=== PATIENT | female | born 1995 | race Caucasian/White ===

== ENCOUNTER 2017-03-17 10:59 | Emergency (ER) | payer OTHER ==
[~2017-03-17] VITALS: Wt 89.0 kg
--- NOTE | 2017-03-17 12:35 | ERD ---
ER Documentation Chief Complaint Date/Time DATE: 03/17/17 TIME: 12:34 Chief Complaint LOWER ABD PAIN X 3 DAYS HPI 21-year-old female comes in with lower abdominal pain that is diffuse and cramping intermittent for the past 3 days. She states that it was worse after going into work and walking. She has had associated diarrhea 3-4 episodes each day that are nonbloody. She has not had any fevers, chills, vomiting. She denies vaginal bleeding. She states her last menstrual period was approximately February 14, 2017. ROS All systems reviewed and are negative except as per history of present illness. Medications Home Meds Active Scripts Dicyclomine Hcl* (Bentyl*) 10 Mg Capsule, 10 MG PO QID, #20 CAP Prov:VANESSA CALABRESE PA-C 03/17/17 PMhx/Soc Medical and Surgical Hx: pt denies Medical Hx, pt denies Surgical Hx Hx Alcohol Use: No Hx Substance Use: No Hx Tobacco Use: No Physical Exam Vitals Vital Signs Date Time Temp Pulse Resp B/P Pulse Ox O2 Delivery O2 Flow Rate FiO2 03/17/17 11:04 98.9 62 18 118/57 99 Physical Exam General: Well-developed, well-nourished. The patient appears in no acute distress. HEENT: Head is normocephalic, atraumatic. No scleral icterus. Neck: Supple. Nontender. Lungs: Clear to auscultation. Normal air movement. Heart: Regular rate and rhythm. S1 and S2 are normal. No murmurs, gallops, or rubs. Abdomen: Soft, tender in the suprapubic region nondistended. Bowel sounds are normoactive. Extremities: No clubbing or cyanosis. Normal pulses. Moving extremities x 4. No weakness. Neurologic: Alert and oriented 3. No focal deficits. Skin: Normal turgor. No rash or lesions. Result Diagram: 03/17/17 1245 03/17/17 1245 Results 24 hrs Laboratory Tests Test 03/17/17 12:40 03/17/17 12:45 Urine Color LT. YELLOW Urine Clarity CLEAR Urine pH 6.5 Urine Specific [place] 1.020 Urine Ketones NEGATIVE Urine Nitrite NEGATIVE Urine Bilirubin NEGATIVE Urine Urobilinogen 0.2 E.U./dL Urine Leukocyte Esterase TRACE Urine Microscopic RBC NONE SEEN/HPF Urine Microscopic WBC 0-2/HPF Urine Squamous Epithelial Cells FEW Urine Hemoglobin NEGATIVE Urine Glucose NEGATIVE% Urine Total Protein NEGATIVE White Blood Count 14.010^3/ul Red Blood Count 5.5310^6/ul Hemoglobin 10.9g/dl Hematocrit 37.9% Mean Corpuscular Volume 68.5fl Mean Corpuscular Hemoglobin 19.7pg Mean Corpuscular Hemoglobin Concent 28.8g/dl Red Cell Distribution Width 21.2% Platelet Count 86749^3/UL Mean Platelet Volume 9.7fl Neutrophils % 72.7% Lymphocytes % 17.1% Monocytes % 6.8% Eosinophils % 2.3% Basophils % 0.5% Nucleated Red Blood Cells % 0.0/100WBC Neutrophils # 10.210^3/ul Lymphocytes # 2.410^3/ul Monocytes # 1.010^3/ul Eosinophils # 0.310^3/ul Basophils # 0.110^3/ul Nucleated Red Blood Cells # 0.010^3/ul Sodium Level 140mmol/L Potassium Level 3.6mmol/L Chloride Level 105mmol/L Carbon Dioxide Level 27mmol/L Anion Gap 12 Blood Urea Nitrogen 16mg/dl Creatinine 0.69mg/dl Glucose Level 88mg/dl Calcium Level 9.2mg/dl Total Bilirubin 0.1mg/dl Direct Bilirubin 0.00mg/dl Indirect Bilirubin 0.1mg/dl Aspartate Amino Transf (AST/SGOT) 22IU/L Alanine Aminotransferase (ALT/SGPT) 44IU/L Alkaline Phosphatase 112IU/L Total Protein 8.4g/dl Albumin 4.4g/dl Globulin 4.00g/dl Albumin/Globulin Ratio 1.10 Lipase 93U/L Current Medications Medications (Trade) Dose Ordered Sig/Katy Route PRN Reason Start Time Stop Time Status Last Admin Dose Admin Dicyclomine HCl (Bentyl) 10 mg ONCE ONCE PO 03/17/17 13:00 03/17/17 13:01 DC 03/17/17 12:36 Procedures/MDM ED course: She had labs and urine obtained. She was given Bentyl for pain. MDM: 21-year-old female has a lower abdominal pain, her abdomen is soft at this time, there are no signs of acute or surgical abdominal process, including perforation or intra-abdominal abscess, appendicitis. She has lower abdominal cramping pain, suprapubic tenderness, will be treated for diarrhea. Departure Diagnosis: Primary Impression: Abdominal pain Additional Impression: Diarrhea Condition: Good VANESSA CALABRESE PA-C March 17, 2017 12:35
[2017-03-17 12:56] LABS: ADD SCAN DIFF NO
[2017-03-17 12:58] LABS: ABNORMAL IP MESSAGE 1; BASOPHIL # 0.1 10^3/ul (0.0-0.1); BASOPHILS % 0.5 % (0.0-2.0); EOSINOPHILS # 0.3 10^3/ul (0.0-0.5); EOSINOPHILS % 2.3 % (0.0-7.0); HEMATOCRIT 37.9 % (37.0-47.0); HEMOGLOBIN 10.9 g/dl (12.0-16.0); LYMPHOCYTES # 2.4 10^3/ul (0.8-2.9); LYMPHOCYTES % 17.1 % (15.0-51.0); MEAN CORPUSCULAR HEMOGLOBIN 19.7 pg (29.0-33.0); MEAN CORPUSCULAR HGB CONC 28.8 g/dl (32.0-37.0); MEAN CORPUSCULAR VOLUME 68.5 fl (82.0-101.0); MEAN PLATELET VOLUME 9.7 fl (7.4-10.4); MONOCYTES % 6.8 % (0.0-11.0); NEUTROPHIL # 10.2 10^3/ul (1.6-7.5); NEUTROPHILS % 72.7 % (39.0-77.0); PLATELET COUNT 429 10^3/UL (140-415); RED BLOOD COUNT 5.53 10^6/ul (4.20-5.40); RED CELL DISTRIBUTION WIDTH 21.2 % (11.5-14.5)
[2017-03-17] MEDS ORDERED: DICYCLOMINE 10 MG CAP PO ONE (13:00)
[2017-03-17 13:06] LABS: ADD UMIC YES; URINE BILIRUBIN (Dip) NEGATIVE (NEGATIVE); URINE BLOOD (Dip) NEGATIVE (NEGATIVE); URINE COLOR LT. YELLOW (YELLOW); URINE GLUCOSE (Dip) NEGATIVE (NEGATIVE); URINE KETONES (Dip) NEGATIVE (NEGATIVE); URINE LEUKOCYTE ESTERASE (Dip) TRACE (NEGATIVE); URINE NITRITE (Dip) NEGATIVE (NEGATIVE); URINE TOTAL PROTEIN (Dip) NEGATIVE (NEGATIVE); URINE UROBILINOGEN (Dip) 0.2 E.U./dL (0.1-1.0)
[2017-03-17 13:15] LABS: ALBUMIN 4.4 g/dl (3.3-4.9); ALBUMIN/GLOBULIN RATIO 1.1; BILIRUBIN,INDIRECT 0.1 mg/dl (0-1.1); BILIRUBIN,TOTAL 0.1 mg/dl (0.2-1.3); CALCIUM 9.2 mg/dl (8.4-10.2); CREATININE 0.69 mg/dl (0.44-1.00); POTASSIUM 3.6 mmol/L (3.5-5.1); TOTAL PROTEIN 8.4 g/dl (6.1-8.1)
[2017-03-17 13:21] LABS: SQUAMOUS EPITHELIAL CELL,UR FEW; URINE RBCS NONE SEEN /HPF (0)
[2017-03-17] MEDS ORDERED: DICY10CA60 PO (13:37)
[2017-03-17] MEDS ORDERED: METR500T PO (13:50)
[2017-03-17] MEDS ORDERED: CIPR500T4 PO (13:50)
[2017-03-17 14:20] VITALS: BP 112/68; PULSE 64; RESP 18; TEMP 97.3
== END 2017-03-17 14:20 | disposition home or self-care (01) ==
LOC: FTE 10:59
DX: R10.84 Generalized abdominal pain (principal); R19.7 Diarrhea, unspecified
CPT/HCPCS: 36415; 80053; 81001; 83690; 85025; Z7502; Z7610; 81003; 99284

== ENCOUNTER 2017-03-27 19:35 | Emergency (ER) | payer SELFPAY ==
[~2017-03-27 19:35] MED LIST: CIPR500T4 PO; DICY10CA60 PO; METR500T PO
== END 2017-03-27 19:45 | disposition left against medical advice (07) ==
LOC: E/R 19:35
DX: Z53.21 Procedure and treatment not carried out due to patient leaving prior to being seen by health care provider (principal)

== ENCOUNTER 2017-06-03 14:29 | Emergency (ER) | payer OTHER ==
[~2017-06-03] VITALS: Ht 160 cm; Wt 93.0 kg
[2017-06-03 14:33] VITALS: Ht 160 cm; Wt 93.0 kg
[2017-06-03] MEDS ORDERED: ACETAMINOPHEN 500 MG TAB PO STA (15:32)
[2017-06-03 15:43] LABS: URINE BLOOD (Dip) POC Trace-lysed (NEGATIVE)
--- NOTE | 2017-06-03 15:51 | ERD ---
ER Documentation Chief Complaint Date/Time DATE: 06/03/17 TIME: 15:49 Chief Complaint 5/10 r. ankle pain x 1 hour HPI This 21-year-old female presents emergency department today complaining of right ankle pain for the past hour. 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 States that she caught her fall. Denies any previous trauma. States that she also has missed her period for the last 3 months and has had negative test at her clinic and wants a blood test and ultrasound here in the emergency department. States that she has some back pain for "a while". States he does not take any medication for the pain. States last time she had back pain she was . Denies any vaginal bleeding, abdominal pain. Denies any dysuria. ROS All systems reviewed and are negative except as per history of present illness. Medications Home Meds Active Scripts Ibuprofen* (Motrin*) 600 Mg Tab, 600 MG PO Q6, #30 TAB Prov:JYOTSNA REVELES PA-C 06/03/17 Acetaminophen* (Tylophen*) 500 Mg Capsule, 1 CAP PO Q6H Y for PAIN AND OR ELEVATED TEMP, #30 CAP Prov:JYOTSNA REVELES PA-C 06/03/17 Metronidazole* (Flagyl*) 500 Mg Tablet, 500 MG PO TID for 7 Days, TAB Prov:VANESSA CALABRESE PA-C 03/17/17 Ciprofloxacin Hcl* (Ciprofloxacin Hcl*) 500 Mg Tablet, 500 MG PO BID for 7 Days , TAB Prov:VANESSA CALABRESE PA-C 03/17/17 Dicyclomine Hcl* (Bentyl*) 10 Mg Capsule, 10 MG PO QID, #20 CAP Prov:VANESSA CALABRESE PA-C 03/17/17 PMhx/Soc Medical and Surgical Hx: pt denies Medical Hx, pt denies Surgical Hx Hx Alcohol Use: No Hx Substance Use: No Hx Tobacco Use: No Physical Exam Vitals Vital Signs Date Time Temp Pulse Resp B/P Pulse Ox O2 Delivery O2 Flow Rate FiO2 06/03/17 14:33 98.7 94 20 120/76 100 Physical Exam Const: No acute distress Head: Atraumatic Eyes: Normal Conjunctiva ENT: Normal External Ears, Nose and Mouth. Neck: Full range of motion..~ No meningismus. Resp: Clear to auscultation bilaterally Cardio: Regular rate and rhythm, no murmurs Abd: Soft, non tender, non distended. Normal bowel sounds Skin: No petechiae or rashes Back: Nontender midline tenderness. Bilateral paraspinal tenderness. Full active range of motion. Negative straight leg raise. Ext: Right ankle with no obvious deformity. No effusion. No ecchymosis. Full active range of motion. Pulses 2+. Distal neurovascular intact Neur: Awake and alert Psych: Normal Mood and Affect Results 24 hrs Laboratory Tests Test 06/03/17 15:50 Bedside Urine pH (LAB) 6.5 Bedside Urine Protein (LAB) 1+ Bedside Urine Glucose (UA) Negative Bedside Urine Ketones (LAB) Negative Bedside Urine Blood Trace-lysed Bedside Urine Nitrite (LAB) Negative Bedside Urine Leukocyte Esterase (L Negative Current Medications Medications (Trade) Dose Ordered Sig/Katy Route PRN Reason Start Time Stop Time Status Last Admin Dose Admin Acetaminophen (Tylenol Tab) 500 mg ONCE STAT PO 06/03/17 15:32 06/03/17 15:33 DC Procedures/MDM Is a 21-year-old female presents to the emergency department today complaining of right ankle pain after slipping at work. Patient's physical exam is benign however I did offer to obtain images for her. Patient declined. Symptoms at this time is consistent with strain versus sprain versus contusion however cannot rule out acute fracture. I have explained this to the patient. Patient understood. Patient also declined crutches here in the emergency department. Patient back exam was benign. There is been no trauma. Low suspicion for acute fracture dislocation. Symptoms at this time is consistent with strain versus sprain She was also requesting a blood test and ultrasound as she think she is and has not had her period since February. I did obtain a urine test. She is afebrile and otherwise well-appearing. Patient has no abdominal pain and no vaginal bleeding and did not feel that she requires further workup at this time. She may follow-up with her primary care doctor [employer] regarding her irregular menstrual cycles. UA is negative for infection. Urine test is negative Patient symptoms at this time is consistent with right ankle injury, back pain and abnormal menstrual cycle. She was given Tylenol here in the emergency department. I went to explain the results to the patient however it appeared the patient eloped prior to receiving her information and discharge paperwork. Patient eloped in stable condition Departure Diagnosis: Primary Impression: Ankle injury Encounter type: initial encounter Laterality: right Qualified Code: S99.911A - Ankle injury, right, initial encounter Additional Impression: Encounter for laboratory test Condition: JYOTNSA Hurtado PA-C Jun 03, 2017 15:51
[2017-06-03] MEDS ORDERED: ACET500C5 PO (16:41)
[2017-06-03] MEDS ORDERED: IBUP-1542 PO (16:41)
== END 2017-06-03 17:14 | disposition left against medical advice (07) ==
LOC: FTE 14:29
DX: S99.911A Unspecified injury of right ankle, initial encounter (principal); W01.0XXA Fall on same level from slipping, tripping and stumbling without subsequent striking against object, initial encounter; Y92.89 Other specified places as the place of occurrence of the external cause
CPT/HCPCS: 81003; Z7502; Z7610; 99283

== ENCOUNTER 2019-01-28 08:32 | Outpatient (CLI) | payer OTHER ==
[~2019-01-28] VITALS: Ht 160 cm; Wt 101.1 kg
[~2019-01-28 08:32] MED LIST changes: +ACET500C5 PO; +DICY10CA40 PO; -DICY10CA60 PO; +IBUP-1542 PO
[2019-01-28 08:45] VITALS: BP 121/59; PULSE 110; RESP 16; Ht 160 cm; Wt 101.1 kg
[2019-01-28] MEDS ORDERED: ONDANSETRON 4 MG INJ IV STA (08:51)
[2019-01-28] MEDS: LACTATED RINGER'S 1,000 ML IV SCH ×2 (09:17→11:30)
[2019-01-28] MEDS ORDERED: ACETAMINOPHEN 325 MG TAB PO ONE (14:00)
--- NOTE | 2019-01-28 14:53 | TRIAGE ---
OB Triage Datetime Report Generated by CPN: 01/28/2019 14:52 Datetime: 01/28/2019 14:22 Heart Rate FHR Baseline Rate: 145 Monitor Mode: External US Variability: Moderate 6-25 bpm Accelerations: 15X15 Decelerations: None Category: Category I Datetime: 01/28/2019 14:01 Labor Evaluation Frequency: irreg Monitor Mode: External Duration (sec)2399: 50-60 Quality: Mild Pattern: Normal: <= 5 Contractions in 10 Minutes Resting Tone [place]: Relaxed Heart Rate FHR Baseline Rate: 145 Monitor Mode: External US Variability: Moderate 6-25 bpm Accelerations: 15X15 Decelerations: None Category: Category I Pain Presence: None/Denies Pain Type: N/A Datetime: 01/28/2019 12:58 Labor Evaluation Frequency: OCC Monitor Mode: External Duration (sec)2399: 50-60 Quality: Mild Pattern: Normal: <= 5 Contractions in 10 Minutes Resting Tone [place]: Relaxed Heart Rate FHR Baseline Rate: 155 Variability: Moderate 6-25 bpm Accelerations: 15X15 Decelerations: None Category: Category I Datetime: 01/28/2019 11:56 Pattern: Normal: <= 5 Contractions in 10 Minutes Resting Tone [place]: Relaxed Contraction Comments: NO UC Heart Rate FHR Baseline Rate: 145 Monitor Mode: External US Variability: Moderate 6-25 bpm Accelerations: 15X15 Decelerations: None Category: Category I Pain Assessment Pain Scale: 6 Pain Goal: 3 Pain Assessment Comments: lower abdominal pain Datetime: 01/28/2019 11:01 Labor Evaluation Frequency: occ Monitor Mode: External Duration (sec)2399: 30-40 Quality: Mild Pattern: Normal: <= 5 Contractions in 10 Minutes Resting Tone [place]: Relaxed Heart Rate FHR Baseline Rate: 145 Monitor Mode: External US Variability: Moderate 6-25 bpm Accelerations: 15X15 Decelerations: None Category: Category I Pain Assessment Pain Scale: 6 Pain Location: Abdomen Pain Goal: 3 Pain Assessment Comments: lower abdominal pain Datetime: 01/28/2019 10:01 Labor Evaluation Frequency: occ Monitor Mode: External Duration (sec)2399: 50 Quality: Mild Pattern: Normal: <= 5 Contractions in 10 Minutes Resting Tone [place]: Relaxed Heart Rate FHR Baseline Rate: 145 Monitor Mode: External US Variability: Moderate 6-25 bpm Accelerations: 15X15 Decelerations: None Category: Category I Pain Presence: None/Denies Pain Type: N/A Datetime: 01/28/2019 09:36 Vaginal Exam Dilatation (cms): 0.0 Exam By: [facility] Datetime: 01/28/2019 09:00 Pattern: Normal: <= 5 Contractions in 10 Minutes Resting Tone [place]: Relaxed Contraction Comments: no uc Heart Rate FHR Baseline Rate: 155 Monitor Mode: External US Variability: Moderate 6-25 bpm Accelerations: 15X15 Decelerations: None Category: Category I Pain Presence: None/Denies Pain Type: N/A Datetime: 01/28/2019 08:43 Assessment Type: Triage Maternal Assessment Level of Consciousness: Fully Conscious DTR's/Clonus: DTRs 2+; No Clonus Headache: Denies Blurred Vision: No Respiratory Effort: Unlabored; Regular Rhythm; Equal Expansion Breath Sounds, Left: Clear and Equal Breath Sounds, Right: Clear and Equal Nausea/Vomiting: Denies RUQ Epigastric Pain: Denies Lower Extremities Edema: Bilateral Lower Extremities Degree: Pitting Upper Extremities Edema: None Facial Edema: None Fall Risk Assessment History of Falling: (0) No Secondary Diagnosis: (0) No Ambulatory Aid: (0) Bedrest/Nurse Assist IV Therapy: (0) No Gait: (0) Normal/Bedrest/Immobile Mental Status: (0) Oriented to Own Ability Fall Score: 0 Fall Risk Score Definition: No Risk: No action required Datetime: 01/28/2019 08:42 Time of Arrival: 01/28/2019 08:30 EGA: 36.3 Arrived By: Ambulatory Arrived From: Home Chief Complaint: Vomitting x4 times since 0100am today, deny uc, deny vag. bleeding, deny srom, dipika rrehea x2 Movement: Present Contractions: Denies/Absent Rupture of Membranes: Denies Vaginal Bleeding: None Vaginal Discharge: Denies Recent Sexual Intercouse: Denies Abdominal Trauma: Not Applicable Patient Complaints: Other Time Provider Notified: 01/28/2019 08:50 Provider Notified: Initial Plan: iv hydration, ua, cbc, cmp, bpp
--- NOTE | 2019-01-28 19:48 | PN ---
Triage Information Date/Time January 28, 2019 Reason for visit: Weeks of Gestation 36 weeks and 3 days /Para 2 para 1 Diabetes: none Hypertention: none Additional information 23-year-old with IUP at 36 weeks and 3 days presented to complain of nausea vomiting and diarrhea since afternoon. Denies any sick contact. Complaint of suprapubic pain and cramps. Denies any leaking of fluid, vaginal bleeding or decreased movement. Objective Vital Signs Date Temp Pulse Resp B/P (MAP) Pulse Ox O2 O2 Flow FiO2 Time Delivery Rate 01/28/19 98.0 110 16 121/59 08:45 (79) Heart Rate: 130's Contractions: 6-10 Minutes Apart Exam General appearance: Alert and oriented x4 does not appear to be in any acute distress Abdomen: Soft, gravid, suprapubic tenderness noted. No rebound tenderness, no guarding no rigidity no evidence of acute abdomen testing reassuring BPP: 06/03 DENISE: 10.9 VS - Last 72 Hours, by Label Date Temp Pulse Resp B/P (MAP) Pulse Ox O2 O2 Flow FiO2 Time Delivery Rate 01/28/19 98.0 110 16 121/59 08:45 (79) Laboratory Tests Test 01/28/19 09:00 White Blood Count 14.3 H Red Blood Count 4.89 Hemoglobin 11.9 L Hematocrit 37.7 Mean Corpuscular Volume 77.1 L Mean Corpuscular Hemoglobin 24.3 #L Mean Corpuscular Hemoglobin Concent 31.6 L Red Cell Distribution Width 16.4 #H Platelet Count 276 # Mean Platelet Volume 10.9 H Immature Granulocytes % 1.200 H Neutrophils % 90.0 H Lymphocytes % 5.4 L Monocytes % 2.9 Eosinophils % 0.2 Basophils % 0.3 Nucleated Red Blood Cells % 0.0 Immature Granulocytes # 0.170 H Neutrophils # 12.9 H Lymphocytes # 0.8 Monocytes # 0.4 Eosinophils # 0.0 Basophils # 0.0 Nucleated Red Blood Cells # 0.0 Urine Color YELLOW Urine Clarity SLIGHTLY CLOUDY A Urine pH 6.0 Urine Specific [place] 1.020 Urine Ketones 2+ H Urine Nitrite NEGATIVE Urine Bilirubin NEGATIVE Urine Urobilinogen 1+ H Urine Leukocyte Esterase NEGATIVE Urine Microscopic RBC 5 Urine Microscopic WBC 14 H Urine Squamous Epithelial Cells MANY A Urine Bacteria FEW A Urine Mucus FEW A Urine Hemoglobin NEGATIVE Urine Glucose NEGATIVE Urine Total Protein NEGATIVE Sodium Level 137 Potassium Level 3.8 Chloride Level 109 Carbon Dioxide Level 20 L Anion Gap 8 Blood Urea Nitrogen 5 L Creatinine 0.53 Est Glomerular Filtrat Rate mL/min > 60 Glucose Level 108 Calcium Level 9.1 Total Bilirubin 0.7 Direct Bilirubin 0.00 Indirect Bilirubin 0.7 Aspartate Amino Transf (AST/SGOT) 20 Alanine Aminotransferase (ALT/SGPT) 17 Alkaline Phosphatase 291 H Total Protein 7.2 Albumin 3.3 Globulin 3.90 H Albumin/Globulin Ratio 0.84 Results/Medications Result Diagram: 01/28/1989901/28/19 09 Results 24 hrs Laboratory Tests Test 01/28/19 09:00 White Blood Count 14.3 H Red Blood Count 4.89 Hemoglobin 11.9 L Hematocrit 37.7 Mean Corpuscular Volume 77.1 L Mean Corpuscular Hemoglobin 24.3 #L Mean Corpuscular Hemoglobin Concent 31.6 L Red Cell Distribution Width 16.4 #H Platelet Count 276 # Mean Platelet Volume 10.9 H Immature Granulocytes % 1.200 H Neutrophils % 90.0 H Lymphocytes % 5.4 L Monocytes % 2.9 Eosinophils % 0.2 Basophils % 0.3 Nucleated Red Blood Cells % 0.0 Immature Granulocytes # 0.170 H Neutrophils # 12.9 H Lymphocytes # 0.8 Monocytes # 0.4 Eosinophils # 0.0 Basophils # 0.0 Nucleated Red Blood Cells # 0.0 Urine Color YELLOW Urine Clarity SLIGHTLY CLOUDY A Urine pH 6.0 Urine Specific [place] 1.020 Urine Ketones 2+ H Urine Nitrite NEGATIVE Urine Bilirubin NEGATIVE Urine Urobilinogen 1+ H Urine Leukocyte Esterase NEGATIVE Urine Microscopic RBC 5 Urine Microscopic WBC 14 H Urine Squamous Epithelial Cells MANY A Urine Bacteria FEW A Urine Mucus FEW A Urine Hemoglobin NEGATIVE Urine Glucose NEGATIVE Urine Total Protein NEGATIVE Sodium Level 137 Potassium Level 3.8 Chloride Level 109 Carbon Dioxide Level 20 L Anion Gap 8 Blood Urea Nitrogen 5 L Creatinine 0.53 Est Glomerular Filtrat Rate mL/min > 60 Glucose Level 108 Calcium Level 9.1 Total Bilirubin 0.7 Direct Bilirubin 0.00 Indirect Bilirubin 0.7 Aspartate Amino Transf (AST/SGOT) 20 Alanine Aminotransferase (ALT/SGPT) 17 Alkaline Phosphatase 291 H Total Protein 7.2 Albumin 3.3 Globulin 3.90 H Albumin/Globulin Ratio 0.84 Disposition: Discharge Assessment/Plan IUP at 36 weeks and 3 days Cramps and suprapubic tenderness Urine analysis suspicious for UTI Symptoms resolved after hydration Patient also with nausea and vomiting and diarrhea consistent with viral gastroenteritis Patient received antiemetic and could tolerate p.o. Symptoms resolved. No evidence of labor Patient discharged home in stable condition Discussed regarding adequate hydration. Urine was sent for culture and sensitivity. labor precaution kick count follow-up with OB office in 48 hours after discharge the patient from the hospital discussed with the patient Keflex 500 mg p.o. 4 times daily prescribed. Patient will have a follow-up in 3 days with the office for follow-up of the culture. If the culture is negative c an stop antibiotics. NAN WALLS MD Jan 28, 2019 19:48
== END 2019-01-28 14:55 | disposition home or self-care (01) ==
LOC: OBT 08:32 → L-D 08:32 → OBT 14:55
PROVIDERS: ATTEND Obstetrics & Gynecology
DX: O99.613 Diseases of the digestive system complicating pregnancy, third trimester (principal); A08.4 Viral intestinal infection, unspecified; R19.7 Diarrhea, unspecified; O21.2 Late vomiting of pregnancy; Z3A.36 36 weeks gestation of pregnancy
CPT/HCPCS: 36415; 76818; 80053; 81001; 85025; 87086; 96360; 96361; J2405; J7120; Z7500; Z7610; 81003; G0463

== ENCOUNTER 2019-02-16 21:24 | Outpatient (CLI) | payer OTHER ==
[~2019-02-16] VITALS: Ht 160 cm; Wt 104.1 kg
[2019-02-16 21:50] VITALS: BP 118/64; PULSE 93; RESP 17; Ht 160 cm; Wt 104.1 kg
--- NOTE | 2019-02-16 23:07 | TRIAGE ---
OB Triage Datetime Report Generated by CPN: 02/16/2019 23:07 Datetime: 02/16/2019 22:40 Labor Evaluation Frequency: IRREGULAR Monitor Mode: External Duration (sec)2399: 40-30 Quality: Mild Pattern: Normal: <= 5 Contractions in 10 Minutes Resting Tone [place]: Relaxed Heart Rate FHR Baseline Rate: 155 Monitor Mode: External US Variability: Moderate 6-25 bpm Accelerations: 15X15 Decelerations: None Category: Category I Datetime: 02/16/2019 22:14 Time of Arrival: 02/16/2019 21:20 EGA: 39.1 Arrived By: Ambulatory Arrived From: Dr. Bryant Chief Complaint: SGA; PT WAS SENT FROM THE CLINIC FOR EFW, BPP/DENISE, AND NST. Movement: Present Contractions: Irregular Time Contractions Began: 02/16/2019 17:00 Rupture of Membranes: Denies Vaginal Bleeding: Scant Vaginal Discharge: Denies Recent Sexual Intercouse: Denies Abdominal Trauma: Not Applicable Patient Complaints: Contractions Time Provider Notified: 02/16/2019 22:00 Provider Notified: DR. MCCOY Initial Plan: EFM, ULTRASOUND, CALL OB Datetime: 02/16/2019 22:10 Vaginal Exam Dilatation (cms): 1.0 Effacement (%): 50 Station: -2 Exam By: Jose MIDDLETON Membrane Status: Intact Vaginal Bleeding: Scant Cervix, Consistency: Moderate Cervix, Position: Posterior Presentation 'A': Cephalic Datetime: 02/16/2019 22:00 Labor Evaluation Frequency: X2 Monitor Mode: External Duration (sec)2399: 80-90 Quality: Mild Pattern: Normal: <= 5 Contractions in 10 Minutes Resting Tone [place]: Relaxed Heart Rate FHR Baseline Rate: 170 Monitor Mode: External US FHR Baseline Changes: Tachycardia Variability: Moderate 6-25 bpm Accelerations: 15X15 Category: Category II Datetime: 02/16/2019 21:30 Stage of : OB Triage Maternal Assessment Level of Consciousness: Fully Conscious DTR's/Clonus: DTRs 2+; No Clonus Headache: Denies Blurred Vision: No Respiratory Effort: Unlabored; Regular Rhythm; Equal Expansion Breath Sounds, Left: Clear and Equal Breath Sounds, Right: Clear and Equal Nausea/Vomiting: Denies RUQ Epigastric Pain: Denies Lower Extremities Edema: None Degree: None Upper Extremities Edema: None Degree: None Facial Edema: None Temperature Route: Oral Fall Risk Assessment History of Falling: (0) No Secondary Diagnosis: (0) No Ambulatory Aid: (0) Bedrest/Nurse Assist IV Therapy: (0) No Gait: (0) Normal/Bedrest/Immobile Mental Status: (0) Oriented to Own Ability Fall Score: 0 Fall Risk Score Definition: No Risk: No action required Pain Assessment Pain Scale: 3 Pain Presence: Intermittent Pain Type: Contraction Pain Location: Abdomen Datetime: 02/16/2019 21:29 Stage of : OB Triage Datetime: 02/16/2019 21:27 Monitor Mode: External Contraction Comments: APPLIED Monitor Mode: External US Comments: APPLIED Datetime: 01/28/2019 08:43 Fall Score: 0 Fall Risk Score Definition: No Risk: No action required Datetime: 01/28/2019 08:42 EGA: 36.3
--- NOTE | 2019-02-17 22:13 | QN ---
Documentation Comment 23 years old 2 para 1-0-0-1 with single intrauterine at 39 weeks and 1 day with ELAINE of 02/22/2019 with possible small for gestational age referred for NST, biophysical profile EFW. She states good movement. She denies nausea, vomiting, shortness of breath, chest pain, headache, visual changes, vaginal bleeding or LOF. -FHR: No sign of metabolic acidosis- Category I -Contractions: None -SVE: /high/ceph/intact -Ultrasound performed: Normal DENISE, BPP 8 out of 8 -EFW 3325 g, 38% -She has been scheduled for induction of labor at 40 weeks -Symptoms and sign of labor, preeclampsia, kick count discussed with patient, she voiced understanding. All of her questions answered. -Patient was discharged home in stable condition with the appropriate discharge instructions provided. I would like patient to have close follow-up with her primary physician or outpatient clinic in 1-2 days or return to triage for worsening symptoms or any other urgent concerns. VERA MCCOY Feb 17, 2019 22:13
== END 2019-02-16 22:58 | disposition home or self-care (01) ==
LOC: OBT 21:24 → L-D 21:25 → OBT 22:58
PROVIDERS: ATTEND Obstetrics & Gynecology
DX: O36.8330 Maternal care for abnormalities of the fetal heart rate or rhythm, third trimester, not applicable or unspecified (principal); Z3A.39 39 weeks gestation of pregnancy
CPT/HCPCS: 76815; 76818

== ENCOUNTER 2019-02-21 01:24 | Inpatient (IN) | payer OTHER ==
[~2019-02-21] VITALS: Ht 157.5 cm; Wt 103.9 kg
[2019-02-21] MEDS ORDERED: PREN-19 PO (01:40)
[2019-02-21] MEDS ORDERED: FERR134T PO (01:40)
[2019-02-21 01:41] VITALS: BP 116/61; PULSE 80; RESP 18
[2019-02-21] MEDS ORDERED: LACTATED RINGER'S 1,000 ML IV PRN (02:08)
--- NOTE | 2019-02-21 02:16 | TRIAGE ---
OB Triage Datetime Report Generated by CPN: 02/21/2019 02:15 Datetime: 02/21/2019 01:57 Stage of : OB Triage Labor Evaluation Frequency: 3-6 Monitor Mode: External Quality: Moderate Pattern: Normal: <= 5 Contractions in 10 Minutes Resting Tone [place]: Relaxed Heart Rate FHR Baseline Rate: 130 Monitor Mode: External US Variability: Moderate 6-25 bpm Accelerations: 15X15 Vaginal Exam Dilatation (cms): 3.5 Effacement (%): 70 Station: -2 Exam By: Lilo Houser Membrane Status: Intact Vaginal Bleeding: Scant Cervix, Consistency: Soft Cervix, Position: Posterior Presentation 'A': Cephalic Datetime: 02/21/2019 01:46 Time of Arrival: 02/21/2019 01:19 EGA: 39.6 Arrived By: Wheelchair Arrived From: Home Chief Complaint: c/o ucs and DFM Movement: Decreased Contractions: Regular Time Contractions Began: 02/20/2019 22:00 Contractions: q2-6 Rupture of Membranes: Denies Vaginal Bleeding: None Vaginal Discharge: Denies Recent Sexual Intercouse: Denies Abdominal Trauma: Not Applicable Patient Complaints: Contractions Time Provider Notified: 02/21/2019 02:10 Provider Notified: Dr Pat Initial Plan: EFM,SVE Datetime: 02/21/2019 01:32 Stage of : OB Triage Maternal Assessment Level of Consciousness: Fully Conscious Headache: Denies Blurred Vision: No Respiratory Effort: Unlabored Nausea/Vomiting: Denies RUQ Epigastric Pain: Denies Facial Edema: None Monitor Mode: External Resting Tone [place]: Relaxed Monitor Mode: External US Comments: FHR 140 Pain Assessment Pain Scale: 8 Pain Presence: Intermittent Pain Type: Contraction Pain Location: Abdomen Datetime: 02/16/2019 22:14 EGA: 39.1 Datetime: 02/16/2019 21:30 Fall Risk Assessment Fall Score: 0 Fall Risk Score Definition: No Risk: No action required Datetime: 01/28/2019 08:43 Fall Risk Assessment Fall Score: 0 Fall Risk Score Definition: No Risk: No action required Datetime: 01/28/2019 08:42 EGA: 36.3
[2019-02-21] MEDS ORDERED: BUTORPHANOL 2 MG INJ IV PRN ×2 (02:30)
[2019-02-21] MEDS ORDERED: OXYTOCIN 30 UNITS/LR 500 ML IV SCH ×3 (02:30→12:30)
[2019-02-21] MEDS ORDERED: OXYTOCIN 30 UNITS/LR 500 ML IV PRN ×2 (02:30→20:30)
[2019-02-21] MEDS ORDERED: LIDOCAINE 1% (MPF) 30 ML INJ INJ PRN (02:30)
[2019-02-21] MEDS ORDERED: METHYLERGONOVINE 0.2 MG INJ IM PRN ×2 (02:30→20:30)
[2019-02-21] MEDS ORDERED: MISOPROSTOL 200 MCG TAB PR PRN ×2 (02:30→20:30)
[2019-02-21] MEDS ORDERED: IBUPROFEN 600 MG TAB PO PRN ×2 (02:30→16:30)
[2019-02-21] MEDS ORDERED: MINERAL OIL LIGHT 10 ML VIAL TOP ONE (02:30)
[2019-02-21] MEDS ORDERED: CARBOPROST 250 MCG INJ IM PRN ×2 (02:30→20:30)
[2019-02-21] MEDS: LACTATED RINGER'S 1,000 ML IV SCH ×3 (03:11→16:04)
[2019-02-21] MEDS ORDERED: MINERAL OIL LIGHT 10 ML VIAL TOP PRN (03:30)
[2019-02-21] MEDS ORDERED: FENTAnyl 2MCG/ML-ROPIV 0.2% 100 ML ONE (14:22)
[2019-02-21] MEDS ORDERED: NALOXONE (0.4 MG/ML) INJ IV PRN (14:30)
--- NOTE | 2019-02-21 14:30 | PREAC ---
Date/Time of Note Date/Time of Note DATE: 02/21/19 TIME: 14:29 Anesthesia Eval and Record Evaluation Time Pre-Procedure Interview DATE: 02/21/19 TIME: 14:29 Age 23 Sex female NPO: 8 hrs Preoperative diagnosis Labor Pain Planned procedure Labor Epidural Past Medical History Past Medical History: Includes Heme: Anemia : : (2), Para: (1), Gestational age: (40) Surgery & Anesthesia Issues No known issue Meds Anticoagulation: No Beta Denny within 24 hr: No Reason Beta Denny not given: Pt. not on B-Denny Reported Medications Ferrous Sulfate (Iron) 134 Mg Tablet, 134 MG PO DAILY, TAB 02/21/19 Vit #76/Iron,Carb/FA (Prenatabs Rx Tablet) 1 Each Tablet, 1 EACH PO DAILY, TAB 02/21/19 Discontinued Scripts Ibuprofen* (Motrin*) 600 Mg Tab, 600 MG PO Q6, #30 TAB Prov:JYOTSNA REVELES PA-C 06/03/17 Acetaminophen* (Tylophen*) 500 Mg Capsule, 1 CAP PO Q6H PRN for PAIN AND OR ELEVATED TEMP, #30 CAP Prov:JYOTSNA REVELES PA-C 06/03/17 Metronidazole* (Flagyl*) 500 Mg Tablet, 500 MG PO TID for 7 Days, TAB Prov:VANESSA CALABRESE PA-C 03/17/17 Ciprofloxacin Hcl* (Ciprofloxacin Hcl*) 500 Mg Tablet, 500 MG PO BID for 7 Days, TAB Prov:VANESSA CALABRESE PA-C 03/17/17 Dicyclomine HCl (Dicyclomine HCl) 10 Mg Capsule, 10 MG PO QID, #20 CAP Prov:VANESSA CALABRESE PA-C 03/17/17 Current Medications Lactated Ringer's 1,000 ml @ 125 mls/hr Q8H IV Last administered on 02/21/19at 09:11; Admin Dose 125 MLS/HR; Start 02/21/19 at 02:08 Butorphanol Tartrate (Stadol) 1 mg Q2H PRN IV PAIN; Start 02/21/19 at 02:30 Butorphanol Tartrate (Stadol) 2 mg Q2H PRN IV .PAIN; Start 02/21/19 at 02:30 Lidocaine (Xylocaine 1% (Mpf)) 30 ml ONCE PRN INJ .EPISIOTOMY; Start 02/21/19 at 02:30 Oxytocin/Lactated Ringer's 500 ml @ 500 mls/hr ONCE POST IV ; Start 02/21/19 at 02:30 Oxytocin/Lactated Ringer's 500 ml @ 125 mls/hr POST IV ; Start 02/21/19 at 02:30 Ibuprofen (Motrin) 600 mg ONCE PRN PO .PAIN 1-5; Start 02/21/19 at 02:30 Lactated Ringer's 1,000 ml @ 2,000 mls/hr Q30M PRN IV .ANESTHESIA Last administered on 02/21/19at 14:17; Admin Dose 2,000 MLS/HR; Start 02/21/19 at 02:08 Oxytocin/Lactated Ringer's 500 ml @ 0 mls/hr ONCE PRN IV .VAGINAL BLEEDING; Start 02/21/19 at 02:30 Methylergonovine Maleate (Methergine) 0.2 mg ONCE PRN IM .VAGINAL BLEEDING; Start 02/21/19 at 02:30 Carboprost Tromethamine (Hemabate) 250 mcg ONCE PRN IM .VAGINAL BLEEDING; Start 02/21/19 at 02:30 Misoprostol (Cytotec) 1,000 mcg ONCE PRN ID .VAGINAL BLEEDING; Start 02/21/19 at 02:30 Oxytocin/Lactated Ringer's 500 ml @ 0 mls/hr FOR AUGMENTATION IV Last administered on 02/21/19at 12:22; Admin Dose 1 MLS/HR; Start 02/21/19 at 12:30 Meds reviewed: Yes Allergies Coded Allergies: No Known Allergy (Unverified , 02/21/19) Allergies Reviewed: Yes Labs/Studies Labs Reviewed: Reviewed by anesthesiologist Result Diagram: 02/21/19 0245 Laboratory Tests 02/21/19 02:45 Blood Bank Test 02/21/19 02:45 Antibody Screen NEGATIVE Blood Type O POSITIVE Rh Immune Globulin Candidate NO test: Positive Studies: ECG (n/a), CXR (n/a) Pre-procedure Exam Last vitals Vital Signs Date Temp Pulse Resp B/P (MAP) Pulse Ox O2 O2 Flow FiO2 Time Delivery Rate 02/21/19 97.4 80 18 116/61 Room Air 01:41 (79) Airway: Adequate mouth opening, Adequate thyromental dist Mallampati: Mallampati II Teeth: Normal Lung: Normal Heart: Normal ASA Physical Status ASA physical status: 2 Emergency: None Planned Anesthetic Neuraxial: Epidural Planned Pain Management Epidural Pre-operative Attestations Prior to commencing anesthesia and surgery, the patient was re-evaluated, there was verification of: *The patient's identity *The results of appropriate recent lab work and preoperative vital signs *The above evaluation not changing prior to induction *Anesthetic plan, risk benefits, alternative and complications discussed with patient/family; questions answered; patient/family understands, accepts and wishes to proceed. TOBY GUZMAN MD Feb 21, 2019 14:30
--- NOTE | 2019-02-21 14:32 | PAC ---
Date/Time of Note Date/Time of Note DATE: 02/21/19 TIME: 14:31 Post-Anesthesia Notes Post-Anesthesia Note Last documented vital signs Vital Signs Date Temp Pulse Resp B/P (MAP) Pulse Ox O2 O2 Flow FiO2 Time Delivery Rate 02/21/19 97.4 80 18 116/61 96 Room Air 14:31 (79) Activity: WNL Respiratory function: WNL Cardiovascular function: WNL Mental status: Baseline Pain reasonably controlled: Yes Hydration appropriate: Yes Nausea/Vomiting absent: Yes TOBY GUZMAN MD Feb 21, 2019 14:32
[2019-02-21] MEDS: FENTAnyl 2MCG/ML-ROPIV 0.2% 100 ML BAG EPI SCH ×2 (14:50→15:47)
[2019-02-21] MEDS ORDERED: MEPERIDINE 25 MG INJ IV ONE (19:00)
[2019-02-21] MEDS ORDERED: MEPERIDINE 25 MG INJ IM ONE (19:00)
[2019-02-21] MEDS ORDERED: ONDANSETRON 4 MG INJ ONE (19:21)
[2019-02-21] MEDS ORDERED: ONDANSETRON 4 MG INJ IV STA (19:22)
[2019-02-21 19:55] VITALS: BP 97/46; PULSE 85; RESP 18
--- NOTE | 2019-02-21 20:06 | HP ---
Date/Time of Note Date/Time of Note DATE: 02/21/19 TIME: 20:01 OB - History Hx of Present Free Text/Dictation 23 years old 2 para 1 with single intrauterine at 39 weeks and 6 days with ELAINE of 05/24/2019 complaining of uterine contractions. She states good movement. She denies nausea, vomiting, shortness of breath, chest pain, headache, visual changes, vaginal bleeding or LOF. Chief Complaint: Uterine contractions Estimated Due Date: Feb 22, 2019 : 2 Para: 1 Spontaneous : 0 Therapeutic : 0 Care: Good Care Ultrasounds: Normal mid trimester US Obstetrical Complications: None Medical Complications: None Past Family/Social History * Past Medical, Surgical, Family and Obstetric Histories reviewed which are unremarkable Blood Type: O+ Rubella: immune RPR/VDRL: Negative GBS Status: Negative HBsAG: Negative OB Admission Exam Vital Signs Vital Signs Vital Signs Date Temp Pulse Resp B/P (MAP) Pulse Ox O2 O2 Flow FiO2 Time Delivery Rate 02/21/19 97.4 80 18 116/61 Room Air 01:41 (79) Physical Exam HEENT: WNL Heart: Rhythm Normal Lungs: Clear Abdomen: WNL Extremities: Normal Cervical Dilatation: 4cm Effacement: 75% Station: -2 Membranes: Intact Heart Rate: 140's Accelerations: Accelerations Present Decelerations: No Decelerations Varibility: Moderate Contractions on Admission: < 5 Minutes Apart Intensity: Moderate Last 72 hours Lab Results CBC & BMP 02/21/19 02:45 OB Assessment/Plan Other plan: 23 years old 2 para 1-0-0-1 with single intrauterine at 39 weeks and 6 days in active labor - FHR: No sign of metabolic acidosis- Category I - Continuous EFM, toco - CBC, blood type and screen - Analgesia options with R/B/A discussed in detail with patient - Epidural per patient request - Please see the orders - O+/Rubella: Nonimmune, will receive vaccine tomorrow - GBS: Neg Admission, procedures, expectations, risks and possible complications have been discussed in detail with the patient. Risk of vaginal delivery including but not limited to bleeding, infection, cervical laceration, placental retention, injury to fetus, blood transfusion, blood transfusion related infection, risk of anesthesia, adhesion, cervical laceration, episiotomy/laceration, possible cesa rean delivery with risk of bleeding, infection, injury to other organs (bowel, bladder, ureter, vessels, nerves), injury to fetus, blood transfusion, blood transfusion related infection, risk of anesthesia, scar and hernia formation, needs for future , removal of uterus or any other indicated surgery discussed with the patient. She expressed understanding and repeats the risks. All of her questions were answered. She signed the informed consent. PHYSICIAN'S VERIFICATION OF INFORMED CONSENT The patient was counseled regarding the procedure, its indications, risks, potential complications and alternatives and any questions were answered. Consent was obtained. PLANNED PROCEDURE/TREATMENT: Vaginal delivery, episiotomy, repair of laceration possible delivery VERA MCCOY Feb 21, 2019 20:06
[2019-02-21] MEDS ORDERED: LACTATED RINGER'S 1,000 ML IV* SCH (20:10)
[2019-02-21] MEDS ORDERED: DEXTROSE 5%-LR 1,000 ML IV SCH (20:10)
--- NOTE | 2019-02-21 20:11 | LDN ---
Date/Time of Note Date/Time of Note DATE: 02/21/19 TIME: 20:06 Delivery Summary 23 years old 2 para 1-0-0-1 with single intrauterine at 39 weeks and 6 days delivered a viable female over second-degree posterior vaginal wall and perineal laceration. There was a tight nuchal cord which clamp and cut. Rest of body delivered. Baby given to the nurse. Placenta delivered spontaneously and intact with three-vessel cord. Laceration repaired with 2-0 Vicryl. Patient tolerated procedure well Time of delivery 17:39 Weight 6 pounds 12 ounces - 3075 g 9 at 1 minute and 9 at 5 minutes EBL 400 mL, 400 mcg Cytotec p.o. and 400 mcg per rectum given Weeks of Gestation 39 weeks and 6 days Placenta Delivered: Spontaneously Meconium: Light Episiotomy: No Anesthesia type: Epidural Estimated blood loss: 400 Sponge & Needle done & correct: Yes All needle counts correct: Yes (1) Infant Delivery Information Sex Sex: female Apgars 1 Minute: 9 5 Minute: 9 10 Minute: 10 Suctioning Nose & mouth suctioned at mahogany: Yes Umbilical Cord Umbilical cord with: 3 Vessels Cord presentations: nuchal cord Nuchal cord present X: 1 Cord Blood was obtained: Yes Mother & Baby Disposition Disposition Mom & Baby to Maternity; Good: Yes VERA MCCOY Feb 21, 2019 20:10
[2019-02-21] MEDS ORDERED: OXYCODONE/ASPIRIN (4.88/325) TAB PO PRN (20:30)
[2019-02-21] MEDS ORDERED: DIBUCAINE 1% 30 GM OINT TOP PRN (20:30)
[2019-02-21] MEDS ORDERED: LANOLIN HPA 1 PKT TOP PRN (20:30)
[2019-02-21] MEDS ORDERED: WITCH HAZEL/GLYCERIN PAD PR PRN (20:30)
[2019-02-21] MEDS ORDERED: ACETAMINOPHEN 325 MG TAB PO PRN (20:30)
[2019-02-21] MEDS ORDERED: BENZOCAINE 20% 56 ML SPRAY TOP PRN (20:30)
[2019-02-21] MEDS ORDERED: DIPHENHYDRAMINE 50 MG INJ IV PRN (20:30)
[2019-02-21] MEDS ORDERED: MAGNESIUM HYDROXIDE 30ML CUP PO PRN (20:30)
[2019-02-21] MEDS ORDERED: ZOLPIDEM 5 MG TAB PO PRN (20:30)
[2019-02-21] MEDS ORDERED: ONDANSETRON 4 MG INJ IV PRN (20:30)
[2019-02-21] MEDS: SENNA/DOCUSATE NA (8.6MG/50MG) TAB PO PRN (21:00)
[2019-02-21] MEDS: IBUPROFEN 600 MG TAB PO SCH (23:47)
[2019-02-22 03:50] VITALS: BP 95/50; PULSE 77; RESP 18
[2019-02-22] MEDS: IBUPROFEN 600 MG TAB PO SCH ×4 (05:32→23:32)
[2019-02-22 08:15] VITALS: BP 96/47; PULSE 76; RESP 18
[2019-02-22 20:10] VITALS: BP 103/70; PULSE 85; RESP 17
--- NOTE | 2019-02-22 21:05 | PN ---
Date/Time of Note Date/Time of Note DATE: 02/22/19 TIME: 21:02 OB Subjective Subjective Subjective PPD# 1 Patient is doing well. She denies nausea, vomiting, shortness of breath, chest pain, headache. She has been ambulating without difficulty, tolerating regular diet. Pain is well controlled on current medications OB Objective Objective Objective VS - Last 72 Hours, by Label Date Temp Pulse Resp B/P (MAP) Pulse Ox O2 O2 Flow FiO2 Time Delivery Rate 02/22/19 97.9 76 18 96/47 (63) Room Air 08:15 02/22/19 98.4 77 18 95/50 (65) Room Air 03:50 02/21/19 99.2 85 18 97/46 (63) Room Air 19:55 02/21/19 97.4 80 18 116/61 Room Air 01:41 (79) General: AAO X 3, comfortable, NAD, appropriate mood and affect. ABD: +BS. Soft, non-tender. Uterus 2 cm below umbilicus Flank: No CVA tenderness (B/L) LE: Mild edema. No clubbing, cyanosis, thigh or calf tenderness (B/L). Homans 'sign is negative Laboratory Tests Test 02/21/19 02:45 02/22/19 07:30 White Blood Count 13.7 10^3/ul 14.2 10^3/ul Red Blood Count 4.49 10^6/ul 3.35 10^6/ul Hemoglobin 10.8 g/dl 8.0 g/dl Hematocrit 34.5 % 26.2 % Mean Corpuscular Volume 76.8 fl 78.2 fl Mean Corpuscular Hemoglobin 24.1 pg 23.9 pg Mean Corpuscular Hemoglobin Concent 31.3 g/dl 30.5 g/dl Red Cell Distribution Width 16.9 % 17.1 % Platelet Count 279 10^3/UL 221 10^3/UL Mean Platelet Volume 10.6 fl 10.8 fl Immature Granulocytes % 1.500 % 1.500 % Neutrophils % 74.0 % 71.2 % Lymphocytes % 16.4 % 19.3 % Monocytes % 6.4 % 6.9 % Eosinophils % 1.3 % 0.6 % Basophils % 0.4 % 0.5 % Nucleated Red Blood Cells % 0.0 /100WBC 0.0 /100WBC Immature Granulocytes # 0.210 10^3/ul 0.220 10^3/ul Neutrophils # 10.1 10^3/ul 10.1 10^3/ul Lymphocytes # 2.2 10^3/ul 2.8 10^3/ul Monocytes # 0.9 10^3/ul 1.0 10^3/ul Eosinophils # 0.2 10^3/ul 0.1 10^3/ul Basophils # 0.1 10^3/ul 0.1 10^3/ul Nucleated Red Blood Cells # 0.0 10^3/ul 0.0 10^3/ul Prothrombin Time 12.2 Sec Prothrombin Time Ratio 1.0 INR International Normalized Ratio 0.89 Activated Partial Thromboplast Time 27.5 Sec Rapid Plasma Reagin NONREACTIVE Hepatitis B Surface Antigen NEGATIVE OB Assessment/Plan Other plan: 23 years old 2 para 2-0-0-2 s/p normal vaginal delivery at 39 weeks and 6 days. PPD#1 - AF, VSS - Contraception methods with R/B/A/FR discussed - Continue care - Discharge home tomorrow - Rx and instruction given - Follow up in 2 and 6 weeks at clinic VERA MCCOY Feb 22, 2019 21:05
--- NOTE | 2019-02-22 21:08 | DS ---
Date/Time of Note Date/Time of Note DATE: 02/22/19 TIME: 21:05 Obstetrical Discharge Record Final Diagnosis Final Diagnosis: Term delivered Other Final Diagnosis 23 years old 2 para 2-0-0-2 s/p normal vaginal delivery at 39 weeks and 6 days. PPD#1. Post course was unremarkable. She is ambulating and tolerating regular diet. Pain is controlled on current medication. She is voiding without difficulty. - AF, VSS - Contraception methods with R/B/A/FR discussed - Continue care - Discharge home tomorrow - Rx and instruction given - Follow up in 2 and 6 weeks at clinic Condition on Discharge Physical Assessment Last Vitals: v Vital Signs Date Temp Pulse Resp B/P (MAP) Pulse Ox O2 O2 Flow FiO2 Time Delivery Rate 02/22/19 97.9 76 18 96/47 (63) Room Air 08:15 Voiding: Yes Bowel Movement: Yes Breast: Soft, non-tender Fundus: Firm Calf Tenderness: No Patient Condition: Stable VERA MCCOY Feb 22, 2019 21:08
[2019-02-22] MEDS: SENNA/DOCUSATE NA (8.6MG/50MG) TAB PO PRN (21:40)
[2019-02-23 04:10] VITALS: BP 100/50; PULSE 75; RESP 17
[2019-02-23] MEDS: IBUPROFEN 600 MG TAB PO SCH ×2 (05:46→12:00)
[2019-02-23 08:00] VITALS: BP 96/51; PULSE 88; RESP 18
[2019-02-23] MEDS ORDERED: DIPHTH/TET/ACEL PERTUSS (ADULT) 0.5 ML VIAL IM* ONE (09:00)
[2019-02-23] MEDS ORDERED: MEASLES,MUMPS,RUBELLA VACCINE INJ SC* ONE (09:00)
--- NOTE | 2019-02-24 14:53 | DELSUM ---
Delivery Summary A-C Datetime Report Generated by CPN: 02/24/2019 14:52 DELIVERY PERSONNEL Zoning Engineer: Sebunnya, Phoebe MATERNAL INFORMATION Delivery Anesthesia: Epidural Medications in Delivery: lr 500ml pitocin 30 units Delivery QBL (ml): 450 Placenta Cultured: No Maternal Complications: None RN Comments: samia head rn ort LABOR SUMMARY EDC: 02/22/2019 00:00 No. Babies in Womb: 1 Attempted: No Labor Anesthesia: Epidural LABOR INFORMATION Reason for Induction: Not Applicable Onset of Labor: 02/20/2019 22:00 Complete Dilatation: 02/21/2019 16:30 Oxytocin: Augmentation Group B Beta Strep: Negative Antibiotics # of Doses: 0 Steroids Given: None Reason Steroids Not Administered: Not Applicable MEMBRANES Membranes Rupture Method: Spontaneous Rupture of Membranes: 02/21/2019 16:30 Length of Rupture (hr): 1.15 Amniotic Fluid Color: Light Meconium Amniotic Fluid Amount: Moderate Amniotic Fluid Odor: None STAGES OF LABOR Stage 1 hr: 18 Stage 1 min: 30 Stage 2 hr: 1 Stage 2 min: 9 Stage 3 hr: 0 Stage 3 min: 21 Total Time in Labor hr: 20 Total Time in Labor min: 0 VAGINAL DELIVERY Episiotomy: None Laceration Extension: Second Degree Laceration Type: Perineal Laceration Repair: Yes Initial Vag Sponge Count: 20 Final Vag Sponge Count: 20 Initial Vag Sharps Count: 2 Final Vag Sharps Count: 2 Sponge Count Correct: Yes; Vaginal Sweep Performed Sharps Count Correct: Yes BABY A INFORMATION Delivery Date/Time: 02/21/2019 17:39 Method of Delivery: Vaginal Born in Route : No : N/A Forceps: N/A Vacuum Extraction: N/A Shoulder Dystocia : N/A SHOULDER DYSTOCIA BABY A Delivery Date/Time: 02/21/2019 17:39 PRESENTATION/POSITION BABY A Presentation: Cephalic Cephalic Presentation: Vertex Vertex Position: Left Occipital Anterior Breech Presentation: N/A PLACENTA INFORMATION BABY A Placenta Delivery Time : 02/21/2019 18:00 Placenta Method of Delivery: Spontaneous Placenta Status: Delivered SCORES BABY A Heart Rate 1 min: >100 bpm Resp Effort 1 min: Good Cry Reflex Irritability 1 min: Cough/Sneeze/Pulls Away Muscle Tone 1 min: Active Motion Color 1 min: Body [place], Extremit Blue Resuscitation Effort 1 min: Tactile Stimulation SCORE 1 MIN: 9 Heart Rate 5 min: >100 bpm Resp Effort 5 min: Good Cry Reflex Irritability 5 min: Cough/Sneeze/Pulls Away Muscle Tone 5 min: Active Motion Color 5 min: Body [place], Extremit Blue Resuscitation Effort 5 min: Tactile Stimulation SCORE 5 MIN: 9 INFANT INFORMATION BABY A Gestational Age at Delivery: 39.6 Gestational Status: Full Term- 39- 40.6 Weeks Outcome : Liveborn Infant Condition : Stable Sex: Female IDENTIFICATION/MEDS BABY A ID Band Number: [id number] ID Band Location: Right Leg; Left Arm Sensor Applied: Yes Sensor Number: [id number] Sensor Location : Cord Clamp Vitamin K Given : Not Given Erythromycin Given: Not Given WEIGHT/LENGTH BABY A Birthweight (gm): 3075 Weight (lb): 6 Weight (oz): 12 Length (in): 18.50 Infant Length (cm): 46.99 CORD INFORMATION BABY A No. Cord Vessels: 3 Nuchal Cord : Around Neck x1, Tight Nuchal Cord- Other: 0 True Knot: 0 Cord Blood Taken: Yes Banking/Donate Info: NO Infant Suction: Mouth; Nose ASSESSMENT BABY A Complications: Meconium Physical Findings at Delivery: Within Normal Limits Respirations: Appears Normal Hydraulic Elevator Constructor/ALS Called : No Care By: Naina ANDREW RN Transferred To: Remains with Mother
== END 2019-02-23 14:52 | disposition home or self-care (01) | DRG 806 ==
LOC: L-D 01:24 → OBT 01:24 → L-D 02:10 → OBT 02:10 → PP1 19:44
PROVIDERS: ADMIT Obstetrics & Gynecology; ATTEND Obstetrics & Gynecology
PROC: 10E0XZZ Delivery of Products of Conception, External Approach (ICD-10-PCS; principal; 2019-02-21)
PROC: 0UQGXZZ Repair Vagina, External Approach (ICD-10-PCS; 2019-02-21)
DX: O69.81X0 Labor and delivery complicated by cord around neck, without compression, not applicable or unspecified (principal); O71.4 Obstetric high vaginal laceration alone; Z37.0 Single live birth; Z3A.39 39 weeks gestation of pregnancy
CPT/HCPCS: 62322; 76815; 85025; 85610; 85730; 86592; 86850; 86900; 86901; 87340; 99464; G0463; J2175; J2405; J3010; J7120; J7121